=== PATIENT | female | born 1970 ===

== ENCOUNTER 2021-04-06 13:37 | Outpatient (CLI) | payer OTHER | END 2021-04-06 14:06 | disposition home or self-care (01) | LOC: SONOGRAMA 13:37 | PROVIDERS: ATTEND Internal Medicine | DX: M54.50 Low back pain, unspecified (principal); E03.9 Hypothyroidism, unspecified; E78.9 Disorder of lipoprotein metabolism, unspecified; E55.9 Vitamin D deficiency, unspecified ==

== ENCOUNTER → 2021-07-15 | Emergency (ER) | payer OTHER ==
[~2021-07-15] VITALS: Ht 160 cm; Wt 61.2 kg
[~2021-07-15] MED LIST: COSENTYX (150 MG/1 M; LEVO-T25 MCG PO
== END | disposition left against medical advice (07) ==
LOC: ER 12:19
DX: Z53.21 Procedure and treatment not carried out due to patient leaving prior to being seen by health care provider (principal)